=== PATIENT | male | born 1955 | race Caucasian/White ===

== ENCOUNTER 2019-02-09 11:26 | Emergency (ER) | payer BC ==
[~2019-02-09] VITALS: Ht 177.8 cm; Wt 99.8 kg
[2019-02-09 12:38] LABS: BASOPHILS ABSOLUTE AUTO 0.06 K/mm3 (0.00-0.23); BASOPHILS PERCENT AUTO 1 % (0-2); EOSINOPHILS ABSOLUTE AUTO 0.21 K/mm3 (0.00-0.68); EOSINOPHILS PERCENT AUTO 3 % (0-6); Hematocrit 45.9 % (37.0-53.0); Hemoglobin 15.6 g/dL (13.5-17.5); IMMATURE GRAN ABSOLUTE AUTO 0.07 K/mm3 (0.00-0.10); IMMATURE GRAN PERCENT AUTO 1 % (0-1); LYMPHOCYTES ABSOLUTE AUTO 1.09 K/mm3 (0.84-5.20); LYMPHOCYTES PERCENT AUTO 16 % (21-46); MONOCYTES ABSOLUTE AUTO 0.51 K/mm3 (0.16-1.47); MONOCYTES PERCENT AUTO 8 % (4-13); Mean Corpuscular HGB 29.4 pg (26.0-34.0); Mean Corpuscular Volume 86 fL (80-100); Mean Platelet Volume 10.6 fL (9.1-12.4); NEUTROPHILS ABSOLUTE AUTO 4.82 K/mm3 (1.96-9.15); NEUTROPHILS PERCENT AUTO 71 % (41-73); Platelet Count 120 K/mm3 (150-400); RDW Coefficient Variation 12.8 % (11.7-14.2); RDW Standard Deviation 39.8 fL (35.1-46.3); Red Blood Cell Count 5.31 M/mm3 (4.30-5.90); White Blood Cell Count 6.76 K/mm3 (4.00-11.30)
[2019-02-09 13:09] LABS: Alanine Aminotransfer (ALT/SGP 35 U/L (12-78); Albumin, Blood 3.8 g/dL (3.4-5.0); Albumin/Globulin Ratio 1.1 (0.8-1.8); Alk Phos 47 U/L (50-136); Anion Gap 9 mmol/L (6-16); Aspartate Aminotrans (AST/SGOT 20 U/L (12-37); Bilirubin, Total 1.3 mg/dL (0.1-1.0); Blood Urea Nitrogen 14 mg/dL (8-24); Bun/Creatinine Ratio 15.3 (12.0-20.0); CO2, Blood 22 mmol/L (21-32); Chloride, Blood 104 mmol/L (98-108); Creatinine, Blood 0.92 mg/dL (0.60-1.20); Globulin, Blood 3.4 g/dL (2.2-4.0); Glomerular Filtration Rate >60 (60-); Glucose, Blood 279 mg/dL (70-99); Potassium, Blood 3.7 mmol/L (3.5-5.5); Sodium, Blood 135 mmol/L (136-145); Total Protein, Blood 7.2 g/dL (6.4-8.2); Troponin I 0.088 ng/mL (0.000-0.040)
[2019-02-09] MEDS ORDERED: SIMV10 PO (13:42)
[2019-02-09] MEDS ORDERED: BUDE6HFA INH (13:43)
[2019-02-09] MEDS ORDERED: Glucophage1000 MG PO (13:43)
[2019-02-09] MEDS ORDERED: LOSARTAN POTAS100 MG PO (13:43)
[2019-02-09] MEDS ORDERED: GLIP2.5ER PO (13:43)
== END 2019-02-09 18:10 | disposition home or self-care (01) ==
LOC: ER 11:26
PROVIDERS: Emergency Medicine
DX: E86.0 Dehydration (principal); R00.2 Palpitations; R55 Syncope and collapse
CPT/HCPCS: 80053; 84484; 85025; 93005; 93010; 96360; 96361; 99284-25; J7120

== ENCOUNTER 2019-02-13 14:22 | Inpatient (IN) | payer BC ==
[~2019-02-13] VITALS: Ht 177.8 cm; Wt 100.5 kg
[~2019-02-13 14:22] MED LIST: BUDE6HFA INH; GLIP2.5ER PO; Glucophage1000 MG PO; LOSARTAN POTAS100 MG PO; SIMV10 PO
[2019-02-13 14:57] LABS: BASOPHILS ABSOLUTE AUTO 0.04 K/mm3 (0.00-0.23); BASOPHILS PERCENT AUTO 0 % (0-2); EOSINOPHILS ABSOLUTE AUTO 0.05 K/mm3 (0.00-0.68); EOSINOPHILS PERCENT AUTO 1 % (0-6); Hematocrit 47.3 % (37.0-53.0); Hemoglobin 15.9 g/dL (13.5-17.5); IMMATURE GRAN ABSOLUTE AUTO 0.09 K/mm3 (0.00-0.10); IMMATURE GRAN PERCENT AUTO 1 % (0-1); LYMPHOCYTES ABSOLUTE AUTO 1.17 K/mm3 (0.84-5.20); LYMPHOCYTES PERCENT AUTO 12 % (21-46); MONOCYTES ABSOLUTE AUTO 0.76 K/mm3 (0.16-1.47); MONOCYTES PERCENT AUTO 8 % (4-13); Mean Corpuscular HGB Conc 33.6 g/dL (31.5-36.5); Mean Platelet Volume 10.6 fL (9.1-12.4); NEUTROPHILS ABSOLUTE AUTO 7.99 K/mm3 (1.96-9.15); NEUTROPHILS PERCENT AUTO 79 % (41-73); Platelet Count 146 K/mm3 (150-400); RDW Standard Deviation 42.3 fL (35.1-46.3)
[2019-02-13 15:05] LABS: Mean Corpuscular Volume 89 fL (80-100)
[2019-02-13 15:18] LABS: Alanine Aminotransfer (ALT/SGP 37 U/L (12-78); Albumin/Globulin Ratio 1.1 (0.8-1.8); Alk Phos 37 U/L (50-136); Anion Gap 8 mmol/L (6-16); Aspartate Aminotrans (AST/SGOT 22 U/L (12-37); Bilirubin, Total 0.6 mg/dL (0.1-1.0); Blood Urea Nitrogen 18 mg/dL (8-24); Bun/Creatinine Ratio 17.1 (12.0-20.0); CO2, Blood 24 mmol/L (21-32); Calcium, Blood 9.7 mg/dL (8.5-10.1); Chloride, Blood 108 mmol/L (98-108); Creatinine, Blood 1.05 mg/dL (0.60-1.20); Globulin, Blood 3.6 g/dL (2.2-4.0); Glomerular Filtration Rate >60 (60-); Glucose, Blood 176 mg/dL (70-99); Sodium, Blood 140 mmol/L (136-145); Total Protein, Blood 7.6 g/dL (6.4-8.2); Troponin I 0.144 ng/mL (0.000-0.040)
[2019-02-13 16:17] LABS: International Normalized Ratio 1.03; Prothrombin Time Results 10.9 Sec (9.7-11.5)
[2019-02-13] MEDS ORDERED: ALBU90OI INH (16:40)
--- NOTE | 2019-02-13 18:55 | NUR ---
PT ARRIVED TO THE MEDICAL FLOOR AROUND 1700 FROM THE ER A/OX3, PLEASANT AND COOPERATIVE, UP IND, THE PT AMBULATED TO THE BATHROOM ON ARRIVAL TO THE FLOOR, THE PT BECAME VERY SOB WITH THE ACTIVITY, THE PT IS ON O2 @ 2L/MIN, THE PT DENIED ANY PAIN AT THIS TIME, REPORTED HAVING A DRY COUGH WITH DEEP BREATHING. THE PT WAS ORIENTED TO THE ROOM LAYOUT AND CALL SYSTEM, HEPRIN GTT STARTED TELE APPLIED, CALL LIGHT IN REACH
--- NOTE | 2019-02-13 18:59 | NUR ---
HEPRIN GTT HEPRIN ORDER AND SET UP WITNESSED BY JOSE KENNEDY
--- NOTE | 2019-02-14 05:03 | NUR ---
SHIFT SUMMARY: PT IS ALERT AND ORIENTED. PT IS CALM AND COOPERATIVE WITH CARE. PT CALLS APPROPRIATELY. PT IS INDEPENDENT IN THE ROOM. PT REPORTS MINOR SOB UPON EXERTION, O2 @ 1.5 L KEEPING SATS > 90%. PT DENIES PAIN, NAUSEA, AND VOMITING. HEPARIN INFUSING ORDERED. PT SLEPT MUCH OF THE NIGHT WHEN NOT DISTURBED. NO ACUTE CHANGES. WILL CONTINUE TO MONITOR.
[2019-02-14 06:41] LABS: BASOPHILS ABSOLUTE AUTO 0.05 K/mm3 (0.00-0.23); BASOPHILS PERCENT AUTO 1 % (0-2); EOSINOPHILS ABSOLUTE AUTO 0.18 K/mm3 (0.00-0.68); EOSINOPHILS PERCENT AUTO 2 % (0-6); Hematocrit 43.8 % (37.0-53.0); Hemoglobin 14.8 g/dL (13.5-17.5); IMMATURE GRAN ABSOLUTE AUTO 0.06 K/mm3 (0.00-0.10); IMMATURE GRAN PERCENT AUTO 1 % (0-1); LYMPHOCYTES ABSOLUTE AUTO 1.46 K/mm3 (0.84-5.20); LYMPHOCYTES PERCENT AUTO 18 % (21-46); MONOCYTES PERCENT AUTO 7 % (4-13); Mean Corpuscular HGB 29.7 pg (26.0-34.0); Mean Corpuscular HGB Conc 33.8 g/dL (31.5-36.5); Mean Corpuscular Volume 88 fL (80-100); Mean Platelet Volume 10.9 fL (9.1-12.4); NEUTROPHILS ABSOLUTE AUTO 5.78 K/mm3 (1.96-9.15); NEUTROPHILS PERCENT AUTO 71 % (41-73); Platelet Count 134 K/mm3 (150-400); RDW Coefficient Variation 13.3 % (11.7-14.2); RDW Standard Deviation 42.3 fL (35.1-46.3); Red Blood Cell Count 4.99 M/mm3 (4.30-5.90); White Blood Cell Count 8.13 K/mm3 (4.00-11.30)
[2019-02-14 06:55] LABS: International Normalized Ratio 1.09; Prothrombin Time Results 11.5 Sec (9.7-11.5)
--- NOTE | 2019-02-14 09:20 | NUR ---
Echocardiogram completed. Stat overread will be requested.
--- NOTE | 2019-02-14 16:24 | NUR ---
PT IS A/OX3, PLEASANT AND COOPERATIVE, THE PT IS UP IND IN HIS ROOM, THE PT IS SOB WITH MINIMAL ACTIVITY, THE PT HAS DENIED ANY CHEST PAIN OR ANY OTHER PAIN T/O THE SHIFT, THE PT IS ON 1.5L/MIN O2 VIA NC, THE PT HAD AN ECHO AND A VENOUS DUPLEX DONE TODAY, HEPRIN GTT WAS STOPPED AND LOVENOX SHOTS WERE STARTED PER MD ORDERS, CALL LIGHT IN REACH, WILL CONTINUE TO MONITOR AND ASSESS FOR CHANGES
--- NOTE | 2019-02-15 03:47 | NUR ---
NOC SHIFT SUMMARY PT ADMITTED FOR BILAT PE. HE IS PLEASANT AND COOPERATIVE WITH CARE. PRESENTLY ON 1LNC. VSS. TELE SHOWS NSR ON LAST CHECK. HAS SLEPT MUCH OF THE NIGHT. NO COMPLAINTS OF PAIN OR DISCOMFORT. HAS NOT GOTTEN OUT OF BED THIS NIGHT. PRESENTLY APPEARS TO BE IN NO ACUTE DISTRESS. WILL CONTINUE TO MONITOR.
--- NOTE | 2019-02-15 08:38 | NUR ---
PT ON RA. PT SATING AT 94 ON RA. PT TOLERATING RA FOR 30 MINUTES NOW. WILL CONTINUE TO MONITOR
[2019-02-15] MEDS ORDERED: ELIQUIS5 MG PO (09:12)
--- NOTE | 2019-02-15 10:21 | NUR ---
PT DISCHARGED PT DISCHARGED AT 1015. PT IN STABLE CONDITION WITH VSS. PT SATING IN THE 90S ON RA AT REST & WITH EXERTION. PT & EDUCATED ON DC INSTRUCTIONS & FOLLOW UP APPOINTMENTS/NEW MEDS. IVS REMOVED & INTACT. PT & DENIED FURTHER INSTRUCTION AT THIS TIME. PT WHEELED OUT BY THIS RN & DRIVEN HOME BY .
--- NOTE | 2019-02-15 18:36 | NUR ---
PT INSURANCE REFUSAL TO PAY. PT INSURANCE REFUSED TO PAY FOR PT ELIQUIS PRESCRIPTION. PER [facility] ALSO WAS DENIED. DR. RAMIREZ CALLED & NOTIFIED. GIVEN PHARMACY NUMBER. AWAITING INSTRUCTION FROM DR. RAMIREZ.
--- NOTE | 2019-02-15 18:49 | NUR ---
PT TO RETURN TO ER FOR LOVENOX/COUMADIN DR. RAMIREZ CONTACTED [facility] & CALLED IN ORDER FOR LOVENOX & COUMADIN TO BE PICKED UP TOMORROW. DR. RAMIREZ CONTACTED PT & EXPLAINED HE WILL PORT PURSER PRESCRIPTIONS TOMORROW FROM PHARMACY & NEEDS TO RETURN TO ER TONIGHT FOR EVENING DOSE. ER CHARGE NURSE, ADALBERTO CONTACTED & GIVEN DR. RAMIREZ ORDER FOR 100MG LOVENOX INJECTION & 5MG COUMADIN. ADALBERTO INFORMED THAT PT WILL NEED TEACHING ON LOVENOX INJECTION BEFORE DEPARTURE. ADALBERTO STATED SHE UNDERSTOOD.
[2019-02-15] MEDS ORDERED: LOVENOX150 MG/1 M SC (20:43)
--- NOTE | 2019-02-17 10:26 | NUR ---
[facility] OFFICE STATED THEY WILL CALL PATIENT TO SET UP AN APPOINTMENT WITHIN ONE WEEK OF DISCHARGE.
== END 2019-02-15 10:15 | disposition home or self-care (01) | DRG 175 ==
LOC: ER 14:22 → MEDS 14:23 → ENPENDDIS 02-15 08:30 → MEDS 02-15 10:15
PROVIDERS: Emergency Medicine; ADMIT Hospitalist
DX: I26.02 Saddle embolus of pulmonary artery with acute cor pulmonale (principal); J96.01 Acute respiratory failure with hypoxia; E11.9 Type 2 diabetes mellitus without complications; D69.6 Thrombocytopenia, unspecified; R00.0 Tachycardia, unspecified; Z86.718 Personal history of other venous thrombosis and embolism; I10 Essential (primary) hypertension; E78.5 Hyperlipidemia, unspecified; Z79.84 Long term (current) use of oral hypoglycemic drugs; Z79.899 Other long term (current) drug therapy
CPT/HCPCS: 36415; 71260; 80053; 81241; 82947; 83880; 84484; 85025; 85303; 85306; 85610; 85730; 93005; 93010; 93306; 93970; 94640; 94760; 99285-25; G0103; J1644; J1650; Q9967

== ENCOUNTER 2019-02-15 19:09 | Emergency (ER) | payer BC ==
[~2019-02-15] VITALS: Ht 177.8 cm; Wt 104.5 kg
[~2019-02-15 19:09] MED LIST changes: +ALBU90OI INH; +ELIQUIS5 MG PO
[2019-02-15] MEDS ORDERED: LOVENOX150 MG/1 M SC (20:43)
== END 2019-02-15 20:57 | disposition home or self-care (01) ==
LOC: ER 19:09
DX: I26.99 Other pulmonary embolism without acute cor pulmonale (principal); E78.5 Hyperlipidemia, unspecified; E11.9 Type 2 diabetes mellitus without complications; J45.909 Unspecified asthma, uncomplicated; Z79.899 Other long term (current) drug therapy
CPT/HCPCS: 96372; 99281-25; J1650

== ENCOUNTER 2021-12-13 07:00 | Day surgery (SDC) | payer OTHER ==
[~2021-12-13] VITALS: Ht 177.8 cm; Wt 100.7 kg
[~2021-12-13 07:00] MED LIST changes: -BUDE6HFA INH; -Glucophage1000 MG PO; +LOVENOX150 MG/1 M SC; +METF500 PO; +SYMBICORT 160-4.6 GM INH
--- NOTE | 2021-12-13 07:29 | NUR ---
PT ADMITTED TO [facility]. AGREES WITH PLANNED PROCEDURE. LUNGS SOUNDS CLEAR. STATES TOLERATED BOWEL PREP, LAST BM CLEAR.
--- NOTE | 2021-12-13 08:00 | NUR ---
12/13/21 0800 Brittany Sims History, Chart, Medications and Allergies reviewed before start of procedure. Patient confirms NPO status and agrees with scheduled surgery. 3-LEAD EKG REVIEWED WITH PHYSICIAN PRIOR TO START OF PROCEDURE. MONITOR INTACT WITH CONTINUOUS PULSE OXIMETRY AND INTERMITTENT BP. PATIENT DETERMINED TO BE ASA APPROPRIATE FOR PROPOFOL SEDATION PRIOR TO START OF PROCEDURE BY DR. MCLCURE.
--- NOTE | 2021-12-13 08:56 | NUR ---
Patient up to Ambulate independently. Gait steady. Discharge instructions reviewed with patient. Patient verbalizes understanding. Copy given to patient to take home. Patient States Post-Procedure ride home has been arranged. Discharged via wheelchair to private car for ride home.
== END 2021-12-13 08:56 | disposition home or self-care (01) ==
LOC: ORSCMMR 07:00 → ORD 08:00 → ORSCMMR 08:56
PROVIDERS: Internal Medicine Gastroenterology
PROC: 0DBM8ZX Excision of Descending Colon, Via Natural or Artificial Opening Endoscopic, Diagnostic (ICD-10-PCS; principal; 2021-12-13 08:00)
PROC: 0DBN8ZX Excision of Sigmoid Colon, Via Natural or Artificial Opening Endoscopic, Diagnostic (ICD-10-PCS; principal; 2021-12-13 08:00)
DX: Z12.11 Encounter for screening for malignant neoplasm of colon (principal); Z86.010 Personal history of colon polyps; D12.2 Benign neoplasm of ascending colon; E11.9 Type 2 diabetes mellitus without complications; I10 Essential (primary) hypertension; E78.00 Pure hypercholesterolemia, unspecified; J45.909 Unspecified asthma, uncomplicated; Z86.711 Personal history of pulmonary embolism; Z79.01 Long term (current) use of anticoagulants; Z79.84 Long term (current) use of oral hypoglycemic drugs; Z79.899 Other long term (current) drug therapy; E66.9 Obesity, unspecified; Z68.32 Body mass index [BMI] 32.0-32.9, adult
CPT/HCPCS: 82947; 88305; J2704; J7120